=== PATIENT | male | born 1940 | race Caucasian/White ===

== ENCOUNTER 2017-07-21 17:08 | Emergency (ER) | payer OTHER ==
[2017-07-21 17:18] VITALS: BP 136/68; TEMP 98.1; BMI 32.9
[2017-07-21] MEDS ORDERED: DECADRON 4 MG/ML SDV IM STA (17:56)
[2017-07-21] MEDS ORDERED: LIDOCAINE HCL 1% SDV IM STA (17:56)
[2017-07-21] MEDS ORDERED: BENADRYL IM STA (17:56)
[2017-07-21] MEDS ORDERED: ROCEPHIN IM STA (17:56)
--- NOTE | 2017-07-21 17:59 | ED.PDOC ---
General ED Provider: Dr. GIOVANNA RINCON Chief Complaint: Facial Injury Stated Complaint: FACIAL JOHN AFTER MIXING LAWN CHEMICALS Time Seen by Physician: 17:30 (MIXED SOME LAWN CHEMCICAL TO TREAT CECILIA MOULTON THEN DEVELOPED EDEMA) Mode of Arrival: Walk-In Information Source: Patient, Family Primary Care Provider: SANTO BROWNLEE Referred to ED by: Other (NO RESP ISSUES ) Nursing and Triage Documentation Reviewed and Agree: Yes Reviewed sepsis parameters & appropriate labs ordered?: Yes (SEE PHOTOS) System Inflammatory Response Syndrome: Not Applicable Sepsis Protocol: For patient's 13 years and over: Temp is 96.8 and below OR 101 and greater Pulse >90 BPM Resp >20/minute Acutely Altered Mental Status Are patient's symptoms suggestive of a new infection, such as: -Pneumonia -Skin, Soft Tissue -Endocarditis -UTI -Bone, Joint Infection -Implantable Device -Acute Abdominal Infection -Wound Infection -Meningitis -Blood Stream Catheter Infection -Unknown System Inflammatory Response Syndrome: Not Applicable Skin Complaint Exam - Skin/Soft Tissue Complaint/Exam Onset/Duration: 1 DAY FACIAL EDEMA AFTER EXPOSURE TO CHEMICAL Symptoms Are: Still present Timing: Constant Initial Severity: Moderate Current Severity: Moderate Location: FACE ONLY SEE PHOTOS Character: Reports: Redness, Swelling. Denies: Raised, Painful Aggravating: Reports: None Alleviating: Reports: None Associated Signs and Symptoms: Denies: Fever, Chills, Itching, Drainage, Bruising, Tenderness, Red streaks, Joint swelling Related History: Reports: Similar episode Related Surgical History: Reports: None Recent Exposure to Others w/Similar Symptoms: No Skin Findings: Present: Erythema (, EDEMA ) Joint Tenderness Present: No Differential Diagnoses: Other (CONTACT DERMATITIS) Review of Systems - Review Of Systems Constitutional: Reports: No symptoms Eyes: Reports: No symptoms Ears, Nose, Mouth, Throat: Reports: No symptoms Respiratory: Reports: No symptoms Cardiac: Reports: No symptoms GI: Reports: No symptoms : Reports: No symptoms Musculoskeletal: Reports: No symptoms Skin: Reports: Rash (, EDEMA FACE ) Neurological: Reports: No symptoms Endocrine: Reports: No symptoms Hematologic/Lymphatic: Reports: No symptoms All Other Systems: Reviewed and Negative Past Medical History - Past Medical History Previously Healthy: Yes Endocrine: Reports: Dyslipidemia Cardiovascular: Reports: Hypertension Respiratory: Reports: None Hematological: Reports: None Gastrointestinal: Reports: None Genitourinary: Reports: None Neuro/Psych: Reports: None Musculoskeletal: Reports: None Cancer: Reports: None - Surgical History General Surgical History: Reports: None - Family History Family History: Reports: None - Social History Smoking Status: Current some day smoker Hx Substance Use: No Alcohol Screening: None Physical Exam - Physical Exam Appearance: Well-appearing, No pain distress, Well-nourished Eyes: JEISON, EOMI, Conjunctiva clear ENT: Erythema (FACE WITHEDEMA SEE PHOTOS) Respiratory: Airway patent, Breath sounds clear, Breath sounds equal, Respirations nonlabored Cardiovascular: RRR, Pulses normal, No rub, No murmur GI/: Soft, Nontender, No masses, Bowel sounds normal, No Organomegaly Musculoskeletal: Normal strength, ROM intact, No edema, No calf tenderness Skin: Warm, Dry, Normal color Neurological: Sensation intact, Motor intact, Reflexes intact, Cranial nerves intact, Alert, Oriented Psychiatric: Affect appropriate, Mood appropriate Critical Care Note - Critical Care Note Total Time (mins): 0 Course - Course Orders, Labs, Meds: Orders Category Date Time Status Ceftriaxone Sodium [Rocephin] MEDS 07/21/17 17:56 Stat 1 gm IM ONCE STA Dexamethasone 4 mg/ml Inj [Decadron 4 mg/ml Sdv] MEDS 07/21/17 17:56 Stat 8 mg IM ONCE STA Diphenhydramine Inj [Benadryl] MEDS 07/21/17 17:56 Stat 25 mg IM ONCE STA Lidocaine HCl/Pf [Lidocaine HCl 1% Sdv] MEDS 07/21/17 17:56 Stat 2.1 ml IM ONCE STA Medications Generic Name Dose Route Start Last Admin Trade Name Arsalanq PRN Reason Stop Dose Admin Ceftriaxone Sodium 1 gm 07/21/17 17:56 Rocephin IM 07/21/17 17:57 ONCE STA Dexamethasone Sodium Phosphate 8 mg 07/21/17 17:56 Decadron 4 Mg/Ml Sdv IM 07/21/17 17:57 ONCE STA Diphenhydramine HCl 25 mg 07/21/17 17:56 Benadryl IM 07/21/17 17:57 ONCE STA Lidocaine HCl 2.1 ml 07/21/17 17:56 Lidocaine Hcl 1% Sdv IM 07/21/17 17:57 ONCE STA Vital Signs: Temp Pulse Resp BP Pulse Ox 07/21/17 17:08 98.1 F 89 20 136/68 93 L Departure - Departure Time of Disposition: 18:00 Disposition: HOME SELF-CARE Discharge Problem: Contact dermatitis, allergic Qualifiers: Contact dermatitis trigger: other chemical product Qualified Code(s): 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 Allergies/Adverse Reactions: Allergies Gadolinium-Containing Contrast Medi Adverse Reaction (Verified 07/21/17 17:15) Home Medications: Ambulatory Orders Amlodipine Besylate [Norvasc] 10 mg PO DAILY 07/21/17 Amoxicillin 500 mg PO Q6HR #21 tablet 07/21/17 Aspirin [Aspirin EC] 81 mg PO DAILYWM 07/21/17 Calcium Carbonate [Calcium] 600 mg PO DAILY 07/21/17 Cilostazol [Pletal] 100 mg PO BID 07/21/17 Donepezil HCl [Aricept] 10 mg PO DAILY 07/21/17 Finasteride [Proscar] 5 mg PO DAILY 07/21/17 Fluticasone Propionate [Flonase] 2 spray NS DAILY 07/21/17 Glyburide [Diabeta] 5 mg PO QDB 07/21/17 Hydrochlorothiazide 12.5 mg PO DAILY 07/21/17 Lisinopril [Zestril] 40 mg PO DAILY 07/21/17 Memantine HCl [Namenda] 5 mg PO DAILY 07/21/17 [place]-3 Fatty Acids/Fish Oil [Fish Oil 1,000 mg Capsule] 1 each PO DAILY Prednisone 40 mg PO DAILYWM #4 tablet 07/21/17 Rosuvastatin Calcium [Crestor] 40 mg PO DAILY 07/21/17 Disposition Discussed With: Patient
== END 2017-07-21 18:54 | disposition home or self-care (01) ==
LOC: ED 17:08
DX: L23.5 Allergic contact dermatitis due to other chemical products (principal); F17.210 Nicotine dependence, cigarettes, uncomplicated
CPT/HCPCS: 96372; 99283